=== PATIENT | female | born 1975 | race Caucasian/White ===

== ENCOUNTER 2017-05-15 13:13 | Emergency (ER) | payer OTHER ==
[2017-05-15 13:20] VITALS: BP 132/74; PULSE 84; TEMP 99.1; BMI 28.8
[2017-05-15] MEDS ORDERED: ACETAMINOPHEN 325 MG TABLET (FP) PO ONE (13:30)
[2017-05-15] MEDS ORDERED: ACETAMINOPHEN 325 MG TABLET (FP) ONE (13:30)
--- NOTE | 2017-05-15 13:34 | PDOC ---
History of Present Illness - General Chief Complaint: Cold Symptoms Stated Complaint: COLD SYMTPOMS AND R TOE PAIN Time Seen by Provider: 05/15/17 13:18 - History of Present Illness Initial Comments: 05/15/17 13:30 Chief complaint: Cold symptoms and fever History of present illness: Patient with URI symptoms for several days, last night developed a fever to 102. Admits nasal congestion with minimal drainage, mild sore throat, nonproductive cough. Review of systems: Denies abdominal pain, nausea, vomiting, diarrhea, urinary tract symptoms such as dysuria frequency urgency hesitancy or hematuria, vaginal bleeding or discharge, headache, stiff neck, anorexia, excessive fatigue Past medical history: Reviewed and noncontributory Social/family history reviewed and significant for an upper respiratory illness in her daughter, who tested negative for strep. Physical exam: Alert and oriented well-developed well-nourished no acute distress cooperative Temperature 99.1, remainder vital signs normal HEENT: Nasal congestion without discharge. No sinus tenderness to palpation. Ears clear. Throat clear. Minimal injection, no exudate swelling or masses. Neck supple without bruit mass or nodes Chest clear with full breath sounds throughout bilaterally. No wheezes rales or rhonchi CV regular without murmur rub or gallop Abdomen benign Skin clear no rash adequate turgor and wet mucous membranes Impression: Viral URI, rule out strep. Plan: Throat culture, analgesics, and further management depending on results. Past History - Past Medical History Allergies/Adverse Reactions: Allergies Allergy/AdvReac Type Severity Reaction Status Date / Time No Known Allergies Allergy Verified 05/15/17 13:14 Home Medications: Ambulatory Orders NK [No Known Home Medication] 05/15/17 Other medical history: DENIES - Surgical History Appendectomy: Yes Gastric Stapling: Yes - Psycho/Social/Smoking Cessation Hx Anxiety: No Suicidal Ideation: No Smoking History: Current some day smoker Number of Cigarettes Smoked Daily: 1 Information on smoking cessation initiated: Yes 'Breaking Loose' booklet given: 05/15/17 Hx Alcohol Use: Yes Drug/Substance Use Hx: No Substance Use Type: Alcohol *Physical Exam - Vital Signs Last Vital Signs Temp Pulse Resp BP Pulse Ox 99.1 F 84 16 132/74 100 05/15/17 13:14 05/15/17 13:14 05/15/17 13:14 05/15/17 13:14 05/15/17 13:14 Progress Note - Progress Note Progress Note: Rapid strep is negative No pain, tenderness, swelling, or edema of the calf. There is localized swelling over the right talofibular ligament. The toes are normal. There is no erythema, warmth, or skin abnormality. The patient runs, walks a lot, and does Pilates, in addition to continuously wearing flat hard soled sandals. This suggests musculoskeletal trauma. She is a nonsmoker, takes no hormones, has no recent travel, and no history of clotting abnormalities in herself or family. Impression is viral URI, chronic right ankle sprain. Advised that if fever persists or symptoms do not improve to return to the ER for reevaluation in 2-3 days if she does not have a primary physician. Otherwise, if any new symptoms develop, but there is increased pain or swelling in the leg, return as well. Afebrile now, fully ambulatory and in no significant discomfort upon discharge with her to follow-up as directed *DC/Admit/Observation/Transfer Diagnosis at time of Disposition: Viral upper respiratory infection - Discharge Dispostion Disposition: HOME Condition at time of disposition: Stable Admit: No - Patient Instructions Printed Discharge Instructions: DI for Viral Upper Respiratory Infection -- Adult Additional Instructions: If fever persists and symptoms do not improve, recheck in 2-3 days. Take Tylenol, rest, good nutrition and adequate fluids. Claritin-D, June-D or Zyrtec-D may be helpful
== END 2017-05-15 14:24 | disposition home or self-care (01) ==
LOC: FER 13:13
DX: J06.9 Acute upper respiratory infection, unspecified (principal); F17.210 Nicotine dependence, cigarettes, uncomplicated
CPT/HCPCS: 87070; 87077; 87430; 99283-25

== ENCOUNTER 2017-06-01 19:01 | Emergency (ER) | payer OTHER ==
[2017-06-01 19:14] VITALS: BP 160/95; PULSE 83; TEMP 98; BMI 28.8
--- NOTE | 2017-06-01 19:25 | PDOC ---
History of Present Illness - General History Source: Patient Exam Limitations: No Limitations - History of Present Illness Initial Comments: 06/01/17 20:15 The patient is a 41 year old female with no significant past medical history, who is sent in to the ED by medical coding auditor for cat scan of her chest. Patient has had multiple chronic complaints over the past few months, and has been worked up by her medical coding auditor. She had gotten a chest x-ray done which was shown to be abnormal with bilateral large infiltrates. Her medical coding auditor had called her today and told her to come in to the ED. She has complaints mild SOB, cough, generalized body aches, fatigue, and fevers that had stopped four days ago. She denies chest pain, chills, nausea, vomiting, diarrhea. Denies dysuria, hematuria, frequency, urgency. PAST MEDICAL HISTORY: no significant history PAST SURGICAL HISTORY: no significant history FAMILY HISTORY: no pertinent history SOCIAL HISTORY: Pt lives with family and is employed. MEDICATIONS: reviewed ALLERGIES: As per nursing notes ROS General: + generalized body aches. + fatigue. + fever. No chills. No weight loss. HEENT: No change in vision. No ear pain CardioVascular: + mild SOB. No chest pain. Respiratory: + cough. Gastrointestinal: no nausea, vomiting, diarrhea or constipation, No rectal bleeding Genitourinary: No dysuria, hematuria, or frequency Musculoskeletal: No joint or muscle pain or swelling Neurologic: No headache, vertigo, dizziness or loss of consciousness Psychiatric: nor depression Skin: No rashes or easy bruising Endocrine: no increased thirst or abnormal weight change Allergic: no skin or latex allergy All other systems reviewed and normal Exam: General: Well-nourished well-developed individual, no acute distress HEENT: Throat: Normal, tonsils normal, no erythema or exudate Neck: Supple, no meningeal signs, no lymphadenopathy Eyes:Pupils equal reactive and round, extraocular motion intact Chest: Nontender to palpation Cardiac: S1-S2 normal, regular rate and rhythm, no murmurs rubs or gallops Respiratory: Decreased breath sounds bilaterally. Mild expiratory wheezing. Few rhonchi bilaterally. Abdomen: Soft, nondistended, normal bowel sounds, nontender to palpation diffusely Extremities: Warm, dry, no cyanosis, clubbing, or edema Skin: No rashes Neuro: Alert and oriented x3, nonfocal exam, grossly intact, normal gait Psych: Normal mood and affect <Saul Patricia - Last Filed: 06/01/17 20:15> - General History Source: Patient Exam Limitations: No Limitations - History of Present Illness Initial Comments: 06/01/17 22:00 A portion of this note was documented by scribe services under my direction. I have reviewed the details of the note, within reason, and agree with the documentation. The case summary and management plan written by me. Assessment and plan: This is a 41-year-old female who comes in complaining of multiple chronic complaints over the course of several months. Patient is had multiple doctors visits and eventually did see a medical coding auditor to got a chest x-ray that showed multiple bilateral pulmonary infiltrates. Patient was sent to the ER for a CAT scan to rule out pulmonary disease. Patient had a CAT scan that was negative for pulmonary embolism it had some hilar lymphadenopathy that was non-pathological in size. There was multiple bilateral pulmonary infiltrates could be secondary to an atypical pneumonia, sarcoidosis or Brenda's granulomatosis. Patient did not have a fever, there is no white count there is no left shift patient is not hypoxic and her vitals are all normal patient is not toxic appearing and said that she actually feels better than she has over the last several months. Discussed findings with patient's medical coding auditor who recommends that we go ahead and start her on H course of azithromycin and he will follow up with her on Saturday and make sure she also is seen by a foreign language stenographer. <Jozef Ge I - Last Filed: 06/01/17 22:03> - General Chief Complaint: Revisit,Radiology Variance Stated Complaint: NEED CHEST CT Time Seen by Provider: 06/01/17 19:24 Past History <Saul Patricia - Last Filed: 06/01/17 20:15> - Past Medical History Other medical history: SWOLLEN ANKLES/JOINTS FOR A YEAR - Surgical History Appendectomy: Yes Gastric Stapling: Yes - Psycho/Social/Smoking Cessation Hx Anxiety: Yes Suicidal Ideation: No Smoking History: Former smoker Have you smoked in the past 12 months: No Number of Cigarettes Smoked Daily: 1 Information on smoking cessation initiated: No 'Breaking Loose' booklet given: 05/15/17 Hx Alcohol Use: Yes Drug/Substance Use Hx: No Substance Use Type: Alcohol <Jozef Ge I - Last Filed: 06/01/17 22:03> - Past Medical History Allergies/Adverse Reactions: Allergies Allergy/AdvReac Type Severity Reaction Status Date / Time No Known Allergies Allergy Verified 05/15/17 13:14 Home Medications: Ambulatory Orders Azithromycin 250 mg PO DAILY #4 tablet 06/01/17 *Physical Exam - Vital Signs Last Vital Signs Temp Pulse Resp BP Pulse Ox 98 F 83 20 160/95 97 06/01/17 19:03 06/01/17 19:03 06/01/17 19:03 06/01/17 19:03 06/01/17 19:03 <Saul Patricia - Last Filed: 06/01/17 20:15> - Vital Signs Last Vital Signs Temp Pulse Resp BP Pulse Ox 98 F 83 20 160/95 97 06/01/17 19:03 06/01/17 19:03 06/01/17 19:03 06/01/17 19:03 06/01/17 19:03 <Jozef Ge I - Last Filed: 06/01/17 22:03> ED Treatment Course - LABORATORY CBC & Chemistry Diagram: 06/01/17 19:20 06/01/17 19:20 - ADDITIONAL ORDERS Additional order review: Laboratory Results 06/01/17 06/01/17 19:20 19:20 Sodium 135 L Potassium 3.5 Chloride 101 Carbon Dioxide 25 Anion Gap 9 BUN 11 Creatinine 0.7 Creat Clearance w eGFR > 60 Random Glucose 107 H Calcium 9.6 Total Bilirubin 0.6 AST 34 ALT 34 Alkaline Phosphatase 78 Creatine Kinase 79 Total Protein 8.3 Albumin 4.2 06/01/17 19:20 RBC 4.83 MCV 82.5 MCHC 34.3 RDW 13.1 MPV 9.7 Neutrophils % 62.3 Lymphocytes % 27.7 Monocytes % 4.2 Eosinophils % 4.2 Basophils % 1.6 <Saul Patricia - Last Filed: 06/01/17 20:15> - LABORATORY CBC & Chemistry Diagram: 06/01/17 19:20 06/01/17 19:20 <Jozef Ge I - Last Filed: 06/01/17 22:03> *DC/Admit/Observation/Transfer - Attestations Scribe Attestion: 06/01/17 20:17 Documentation prepared by Saul Patricia, acting as special forces medical sergeant for Jozef Ge MD. <Saul Patricia - Last Filed: 06/01/17 20:15> - Discharge Dispostion Admit: No <Jozef Ge I - Last Filed: 06/01/17 22:03> Diagnosis at time of Disposition: Pneumonia Qualifiers: Pneumonia type: due to unspecified organism Laterality: bilateral Lung location : upper lobe of lung Qualified Code(s): J18.9 - Pneumonia, unspecified organism - Discharge Dispostion Disposition: HOME Condition at time of disposition: Stable - Prescriptions Prescriptions: Azithromycin 250 mg PO DAILY #4 tablet - Referrals Referrals: STAFF,NOT ON [Primary Care Provider] - - Patient Instructions Additional Instructions: Take azithromycin 1 tablet a day for the next 4 days.. It is very important that you call your medical coding auditor Saturday morning and follow -up with him. He will also help you find a foreign language stenographer to follow-up regarding her abnormal chest x-ray. Return to the emergency department immediately with ANY new, persistent or worsening symptoms. Continue any medications as previously prescribed by your physician. You should follow up with your primary doctor as soon as possible regarding today's emergency department visit. . Please make sure your doctor reviews the results of your emergency evaluation. Thank you for coming to the Emergency Department today for your care. It was a pleasure to see you today. Please note that your evaluation is INCOMPLETE until you follow-up with your doctor.
[2017-06-01 19:45] LABS: BASOPHIL 1.6 % (0-2.0); EOSINOPHIL 4.2 % (0-4.5); MCH 28.3 pg (25.7-33.7); MCHC 34.3 g/dl (32.0-36.0); MEAN CELL VOLUME 82.5 fl (80-96); MEAN PLT VOLUME 9.7 fl (7.5-11.1); NEUTROPHILS 62.3 % (42.8-82.8); PLATELET COUNT 557 K/MM3 (134-434); RDW 13.1 % (11.6-15.6); WHITE BLOOD COUNT 9.9 K/mm3 (4.0-10.8)
[2017-06-01 19:53] LABS: CPK(DFH) 79 IU/L (26-140)
[2017-06-01 19:54] LABS: ALBUMIN 4.2 g/dl (3.5-5.0); ALK PHOS 78 U/L (32-92); ANION GAP 9 (8-16); BILIRUBIN,TOTAL 0.6 mg/dl (0.2-1.0); CALCIUM 9.6 mg/dl (8.4-10.2); CO2 25 mmol/L (22-28); CREATININE 0.7 mg/dl (0.6-1.3); GLUCOSE,RANDOM 107 mg/dl (74-106); SGOT/AST 34 U/L (10-42); SGPT/ALT 34 U/L (10-40); TOT PROT 8.3 g/dl (6.4-8.3)
[2017-06-01 20:16] LABS: TROPONIN I (DFP) < 0.03 ng/ml (0.03-0.50)
[2017-06-01] MEDS ORDERED: AZITHROMYCIN 250 MG TABLET (FP) PO ONE (21:53)
[2017-06-01] MEDS ORDERED: AZITHROMYCIN 250 MG TABLET (FP) ONE (21:54)
== END 2017-06-01 22:07 | disposition home or self-care (01) ==
LOC: FER 19:01
DX: J18.9 Pneumonia, unspecified organism (principal); Z87.891 Personal history of nicotine dependence
CPT/HCPCS: 36415; 71275-TC; 80053; 82550; 84484; 85025; 99281-25

== ENCOUNTER 2017-09-12 18:50 | Emergency (ER) | payer OTHER ==
[2017-09-12 19:39] VITALS: BP 133/70; PULSE 56; TEMP 98.1; BMI 28.8
--- NOTE | 2017-09-12 19:44 | PDOC ---
History of Present Illness - General History Source: Patient Exam Limitations: No Limitations - History of Present Illness Initial Comments: 09/12/17 19:54 Dr. Grimm, plastic surgery was called and message left on his cell phone and on the answering service recording. 09/12/17 20:15 Dr. Grimm, called, message left on his cell phone. Dr. Grimm called back shortly after the second page and in discussion with him and the patient the patient preferred to medium is in the office in the morning or plastics closure rather than wait for him to come into the ER tonight. The patient has a small child at home and the patient was concerned because the child's aunt happened and wanted to get home to the child as soon as possible so that the child would know that vomiting was okay. The patient was started on Augmentin and will be discharged and follow-up with Dr. Grimm in his office at [address] [place] [address] in the morning. <Jozef Ge I - Last Filed: 09/12/17 20:15> - General History Source: Patient Exam Limitations: No Limitations - History of Present Illness Initial Comments: 09/12/17 20:45 The patient is a 42 year old female, with a significant past medical history of anxiety(on Lexapro), who presents to the emergency department s/p dog bite and sustaining a laceration to her upper lip at approximately 17:30. The patient reports she was at the pet store with her daughter, where there was another customer with her dog there that appeared friendly. Patient reports the global logistics manager confirmed it was okay to pet the dog. When she leaned down to pet the dog, she reports the dog jumped on her face and bit her upper lip. The patient reports she is unsure what the dog did to her nose. Patient reports heavy bleeding on her right upper lip s/p bite, which has since resolved. She reports associate numbness and pain, but states she has not taken anything for the pain. Patient reports speaking to the dog global logistics manager after the incident, who states the dog is up to date with its vaccinations. Patient does not know when her last tetanus shot was. Patient denies any fever, chills, headache, or dizziness. She denies any nausea or vomiting. She denies any other injuries. PAST MEDICAL HISTORY: anxiety PAST SURGICAL HISTORY: Appendectomy, Gastric sleeve FAMILY HISTORY: no pertinent history SOCIAL HISTORY: Pt lives with family and is employed. Social ETOH use. Non smoker. No recreational drug use. MEDICATIONS: reviewed ALLERGIES: As per nursing notes General: No fevers or chills, no weakness, no weight loss HEENT: Yes laceration to right upper lip with numbness/pain/ and bleeding, left nose abrasion. No change in vision. No sore throat. No ear pain CardioVascular: No chest pain or shortness of breath Respiratory:No cough, or wheezing. Gastrointestinal: no nausea, vomiting, diarrhea or constipation, No rectal bleeding Genitourinary: No dysuria, hematuria, or frequency Musculoskeletal: No joint or muscle pain or swelling Neurologic: No headache, vertigo, dizziness or loss of consciousness Psychiatric: No depression Skin: No rashes or easy bruising Endocrine: no increased thirst or abnormal weight change Allergic: no skin or latex allergy All other systems reviewed and normal GENERAL: The patient is awake, alert, and fully oriented, in no acute distress. HEAD: Through and through laceration of the upper lip that begins above the gibson borders, goes through the lip and becomes more superficial and jagged once it crosses the gibson border, and extends medially for approximately 1 cm. Superficial abrasion to the left nose extending approximately 3 cm. No other signs of trauma. EYES: Pupils equal, round and reactive to light, extraocular movements intact, sclera anicteric, conjunctiva clear. EXTREMITIES: Normal range of motion, no edema. NEUROLOGICAL: Normal speech, normal gait. PSYCH: Normal mood, normal affect. SKIN: Laceration to the right upper lip. 3 cm Abrasion to the left nose. Otherwise, warm, dry, normal turgor, no rashes or lesions noted. <Manuel Goldstein - Last Filed: 09/12/17 20:45> - General Chief Complaint: Bite Stated Complaint: DOG BITE THROUGH THE LIP Time Seen by Provider: 09/12/17 19:40 Past History - Surgical History Appendectomy: Yes Gastric Stapling: Yes - Suicide/Smoking/Psychosocial Hx Smoking History: Former smoker Have you smoked in the past 12 months: No Number of Cigarettes Smoked Daily: 0 If you are a former smoker, when did you quit?: 20 YRS AGO Information on smoking cessation initiated: No 'Breaking Loose' booklet given: 05/15/17 Hx Alcohol Use: Yes Drug/Substance Use Hx: No Substance Use Type: None <Jozef Ge I - Last Filed: 09/12/17 20:15> <Manuel Goldstein - Last Filed: 09/12/17 20:45> - Past Medical History Allergies/Adverse Reactions: Allergies Allergy/AdvReac Type Severity Reaction Status Date / Time No Known Allergies Allergy Verified 09/12/17 19:32 Home Medications: Ambulatory Orders Escitalopram Oxalate [Lexapro -] 5 mg PO DAILY 09/12/17 *Physical Exam - Vital Signs Last Vital Signs Temp Pulse Resp BP Pulse Ox 98.1 F 56 L 15 133/70 99 09/12/17 19:32 09/12/17 19:32 09/12/17 19:32 09/12/17 19:32 09/12/17 19:32 <Jozef Ge I - Last Filed: 09/12/17 20:15> - Vital Signs Last Vital Signs Temp Pulse Resp BP Pulse Ox 98.1 F 56 L 15 133/70 99 09/12/17 19:32 09/12/17 19:32 09/12/17 19:32 09/12/17 19:32 09/12/17 19:32 <Manuel Goldstein - Last Filed: 09/12/17 20:45> ED Treatment Course - Medications Given in the ED: ED Medications Discontinued Medications Generic Name Dose Route Start Last Admin Trade Name Ianq PRN Reason Stop Dose Admin Amoxicillin/Clavulanate Potassium 1 tab 09/12/17 20:05 09/12/17 20:19 Augmentin - 875mg Tablet PO 09/12/17 20:06 1 tab ONCE ONE Administration Diphtheria/Tetanus/Acell Pertussis 0.5 ml 09/12/17 20:04 09/12/17 20:19 Boostrix - IM 09/12/17 20:05 0.5 ml ONCE ONE Administration <Manuel Goldstein - Last Filed: 09/12/17 20:45> *DC/Admit/Observation/Transfer - Discharge Dispostion Admit: No <Jozef Ge I - Last Filed: 09/12/17 20:15> - Attestations Scribe Attestion: 09/12/17 20:45 Documentation prepared by Manuel Goldstein, acting as medical device sales representative for Jozef Ge MD. <Manuel Goldstein - Last Filed: 09/12/17 20:45> Diagnosis at time of Disposition: Lip laceration Qualifiers: Encounter type: initial encounter Qualified Code(s): S01.511A - Laceration without foreign body of lip, initial encounter - Discharge Dispostion Disposition: HOME Condition at time of disposition: Good - Referrals Referrals: Joanie Limon MD [Primary Care Provider] - Girma Grimm MD [Staff Physician] - - Patient Instructions Printed Discharge Instructions: DI for Animal Bites Additional Instructions: Take Augmentin one tablet twice a day for the next [address] Grimm's office in the morning his phone number is [phone]. The address for his office is [address] [place] [address]. Do not drink any milk prior to going to his office in the morning Return to the emergency department immediately with ANY new, persistent or worsening symptoms. Continue any medications as previously prescribed by your physician. You should follow up with your primary doctor as soon as possible regarding today's emergency department visit. . Please make sure your doctor reviews the results of your emergency evaluation. Thank you for coming to the Emergency Department today for your care. It was a pleasure to see you today. Please note that your evaluation is INCOMPLETE until you follow-up with your doctor.
[2017-09-12] MEDS ORDERED: DIPHTH,PERTUSS(ACELL),TET 0.5 ML DISP.SYRIN IM ONE (20:04)
[2017-09-12] MEDS ORDERED: AMOX TR/POT CLAV 875MG/125MG TABLETS (FP) PO ONE (20:05)
[2017-09-12] MEDS ORDERED: AMOX TR/POT CLAV 875MG/125MG TABLETS (FP) ONE (20:15)
== END 2017-09-12 20:50 | disposition home or self-care (01) ==
LOC: FER 18:50
DX: S01.511A Laceration without foreign body of lip, initial encounter (principal); W54.0XXA Bitten by dog, initial encounter; Y92.9 Unspecified place or not applicable; Z87.891 Personal history of nicotine dependence
CPT/HCPCS: 90715; 99282-25